=== PATIENT | male | born 1985 ===

== ENCOUNTER 2017-08-15 12:03 | Emergency (ER) | payer OTHER ==
[2017-08-15 12:36] VITALS: BP 152/97; PULSE 69; RESP 16; TEMP 96.9; O2SAT 100
--- NOTE | 2017-08-15 13:28 | ED PDOC ---
HPI: Male Pain Time Seen by Provider: 08/15/17 12:39 Chief Complaint (Nursing): Male Genitourinary Chief Complaint (Provider): Urinary Frequency and Dysuria History Per: Patient History/Exam Limitations: no limitations Onset/Duration Of Symptoms: Other (x1 month) Current Symptoms Are (Timing): Still Present Pain Scale Rating Of: 8 Quality Of Discomfort: "Pain" Associated Symptoms: denies: Fever, Nausea, Vomiting Alleviating Factors: None Additional Complaint(s): 31 year old male presenting with urinary frequency and dysuria x1 month. The patient reports that when he was younger he would get frequent urine infections , but the last one occurred when he was 11 years old. He states that he is currently not sexually active and the last time he engaged in intercourse was 1 year ago. Denies penile discharge, rash, testicular pain, history of diabetes. PMD: Non [facility] Provider Past Medical History Reviewed: Historical Data, Nursing Documentation, Vital Signs Vital Signs: Last Vital Signs Temp 96.9 F L 08/15/17 12:36 Pulse 69 08/15/17 12:36 Resp 16 08/15/17 12:36 BP 152/97 H 08/15/17 12:36 Pulse Ox 100 08/15/17 12:36 - Medical History PMH: No Chronic Diseases - Surgical History Surgical History: No Surg Hx - Family History Family History: States: Unknown Family Hx - Social History Current smoker - smoking cessation education provided: Yes (Light Smoker < 10 Cigarettes Daily) Ex-Smoker (has not smoked in the last 12 months): Yes Alcohol: Other (yes) Drugs: Other (yes) - Immunization History Hx Tetanus Toxoid Vaccination: No Hx Influenza Vaccination: No Hx Pneumococcal Vaccination: No - Home Medications Home Medications: Ambulatory Orders Medication Instructions Recorded Ciprofloxacin [Cipro] 500 mg PO BID #14 tab 08/15/17 Ibuprofen [Motrin Tab] 800 mg PO Q6 PRN #30 tab 08/15/17 Tamsulosin [Flomax] 0.4 mg PO DAILY #7 cap 08/15/17 - Allergies Allergies/Adverse Reactions: Allergies Allergy/AdvReac Type Severity Reaction Status Date / Time No Known Allergies Allergy Verified 12/04/14 09:42 Review of Systems ROS Statement: Except As Marked, All Systems Reviewed And Found Negative Genitourinary Male: Positive for: Dysuria, Frequency. Negative for: Penile Discharge, Rash, Penile Pain Physical Exam - Reviewed Nursing Documentation Reviewed: Yes Vital Signs Reviewed: Yes - Physical Exam Appears: Positive for: Non-toxic, No Acute Distress Head Exam: Positive for: NORMAL INSPECTION Skin: Positive for: Normal Color, Warm, Dry. Negative for: Rash Eye Exam: Positive for: Normal appearance, EOMI, PERRL. Negative for: Nystagmus Gastrointestinal/Abdominal: Positive for: Normal Exam, Bowel Sounds, Soft. Negative for: Tenderness, Guarding, Rebound Male Genital Exam: Positive for: normal genitalia (normal uncircumcised male), other (no scrotal swelling; no paraphymosis or phymosis). Negative for: lesions , testicular tenderness (R), testicular tenderness (L) Back: Positive for: Normal Inspection. Negative for: L CVA Tenderness, R CVA Tenderness Neurologic/Psych: Positive for: Alert, Oriented, Gait - Laboratory Results Result Diagrams: 08/15/17 13:48 08/15/17 13:48 Urine dip results: Positive for: Blood (moderate). Negative for: Leukocyte Esterase, Nitrate, Ketones, Glucose, Bilirubin, Protein - ECG O2 Sat by Pulse Oximetry: 100 (RA) Pulse Ox Interpretation: Normal - Progress ED Course And Treament: Upon further questioning pt. also c/o L groin pain radiating to his lower back. Denies hematuria, flank pain, hx of kidney stones. 1444 CT abd/pelvis w/o contrast: punctate L mid-ureteral calculus Pt informed of results and instructed to f/u with Dr. Christine, urologist, for further evaluation Medical Decision Making Medical Decision Makin Initial Impression 31 year old male presenting with urinary frequency and dysuria Initial Plan: * Udip * Chlamydia/GC RNA,TMA * Urine Culture * Finger Stick * Reevaluation Documented by Tess Randall acting as a scribe for Jose Levine PA-C. All medical record entries made by the Scribe were at my direction and personally dictated by me. I have reviewed the chart and agree that the record accurately reflects my personal performance of the history, physical exam, medical decision making, and the department course for this patient. I have also personally directed, reviewed, and agree with the discharge instructions and disposition. Disposition - Clinical Impression Clinical Impression: Kidney stone - Patient ED Disposition Is Patient to be Admitted: No - Disposition Referrals: Juan Christine Jr., MD [Staff Provider] - Disposition: Routine/Home Disposition Time: 14:46 Condition: STABLE Additional Instructions: Follow up with Dr. Christine, urologist, for further evaluation. Return to ED immediately for any concerns or questions. Prescriptions: Ciprofloxacin [Cipro] 500 mg PO BID #14 tab Ibuprofen [Motrin Tab] 800 mg PO Q6 PRN #30 tab PRN Reason: pain Tamsulosin [Flomax] 0.4 mg PO DAILY #7 cap Instructions: Kidney Stones (ED), How to Strain Your Urine (ED) Forms: [facility] (Iranian) Print Language: LATVIAN
[2017-08-15 14:22] LABS: ALB/GLOB RATIO 1.4 (1.0-2.1); ALBUMIN 4.9 g/dL (3.5-5.0); ALT/SGPT 42 U/L (21-72); AST/SGOT 24 U/L (17-59); BLOOD UREA NITROGEN 18 mg/dl (9-20); CALCIUM 9.5 mg/dL (8.4-10.2); GFR AFRICAN-AMERICAN > 60; GFR NON-AFRICAN AMERICAN > 60
[2017-08-15 14:28] LABS: BASO % 0.4 % (0.0-2.0); EOS % 0.5 % (0.0-4.0); HEMOGLOBIN 15.2 g/dL (12.0-18.0); LYMPH # 2.1 K/uL (1.0-4.3); LYMPH % 30.5 % (20.0-40.0); MEAN CELL VOLUME 82.9 fl (80.0-94.0); MEAN CORPUSCULAR HEMOGLOBIN 27.4 pg (27.0-31.0); MEAN CORPUSCULAR HGB CONC 33.1 g/dL (33.0-37.0); MEAN PLATELET VOLUME 8.6 fl (7.2-11.7); MONO # 0.3 K/uL (0.0-0.8); MONO % 3.9 % (0.0-10.0); NEUT # 4.4 K/uL (1.8-7.0); NEUT % 64.7 % (50.0-75.0); NRBC % 0.1 % (0.0-0.0); RBC 5.55 Mil/uL (4.40-5.90); RED CELL DISTRIBUTION WIDTH 13.8 % (11.5-14.5); WHITE BLOOD COUNT 6.8 K/uL (4.8-10.8)
--- NOTE | 2017-08-15 14:41 | CT ---
PROCEDURE: CT Abdomen and Pelvis without intravenous contrast HISTORY: hematuria, L groin pain radiating to lower back COMPARISON: None. TECHNIQUE: Contiguous images were obtained from the domes of the diaphragms to the upper thighs without the administration of intravenous contrast. Oral contrast was not administered. Radiation dose: Total exam DLP = 1094.7 mGy-cm. This CT exam was performed using one or more of the following dose reduction techniques: Automated exposure control, adjustment of the mA and/or kV according to patient size, and/or use of iterative reconstruction technique. FINDINGS: LOWER THORAX: Focal lingula subsegmental atelectasis. LIVER: Hepatic steatosis. No gross lesion or ductal dilatation. GALLBLADDER AND BILE DUCTS: Unremarkable. PANCREAS: Unremarkable. No gross lesion or ductal dilatation. SPLEEN: Unremarkable. ADRENALS: Unremarkable. No mass. KIDNEYS AND URETERS: Punctate mid left ureteral nonobstructive calculus (series 3, images 99 and 100). No hydronephrosis. No solid mass. VASCULATURE: Unremarkable. No aortic aneurysm. BOWEL: Unremarkable. No obstruction. No gross mural thickening. APPENDIX: Unremarkable. Normal appendix. PERITONEUM: Unremarkable. No free fluid. No free air. LYMPH NODES: Unremarkable. No enlarged lymph nodes. BLADDER: Unremarkable. REPRODUCTIVE: Unremarkable. BONES: No acute fracture. OTHER FINDINGS: None. IMPRESSION: Punctate nonobstructive mid left ureteral calculus. No hydroureteronephrosis. Additional findings as above.
== END 2017-08-15 15:07 | disposition home or self-care (01) ==
LOC: H.ER 12:03
DX: N20.2 Calculus of kidney with calculus of ureter (principal)